=== PATIENT | female | born 1995 | race Caucasian/White ===

== ENCOUNTER 2018-10-21 09:44 | Emergency (ER) | payer BC, OTHER ==
[~2018-10-21] VITALS: Ht 157.5 cm; Wt 49.8 kg
[~2018-10-21 09:44] MED LIST: FLUO10CA26; QUET25TA; RANI75TA
[2018-10-21 09:55] VITALS: BP 143/92; PULSE 77; RESP 18; Ht 157.5 cm; Wt 49.8 kg
[2018-10-21] MEDS ORDERED: ONDANSETRON (ODT) 4 MG TAB ODT STA (10:07)
[2018-10-21] MEDS ORDERED: KETOROLAC 30 MG INJ IV STA (10:31)
[2018-10-21] MEDS ORDERED: ONDANSETRON 4 MG INJ IV STA (10:31)
[2018-10-21] MEDS ORDERED: SOD CHLORIDE 0.9% 1,000 ML IV STA (10:31)
[2018-10-21] MEDS ORDERED: ACET500C5 PO (12:06)
[2018-10-21] MEDS ORDERED: ONDA4TAB14 PO (12:30)
--- NOTE | 2018-10-21 13:48 | ERD ---
ER Documentation Chief Complaint Chief Complaint PT with with R sided AP , diarrhea, vomiting since this morning, dysuria HPI 22 yr old female complaining of abdominal pain with vomiting and diarrhea. Patient has some dysuria. Denies any fevers. Has not taken medications for symptoms. Patient has a history of dysuria. Denies medical problems. NKDA. Surgical history denies. Social history denies ROS All systems reviewed and are negative except as per history of present illness. Medications Home Meds Active Scripts Ondansetron (Ondansetron Odt) 4 Mg Tab.rapdis, 4 MG PO Q6H PRN for NAUSEA AND/OR VOMITING, #10 TAB Prov:KYRA YODER PA-C 10/21/18 Acetaminophen* (Tylophen*) 500 Mg Capsule, 2 CAP PO Q8H PRN for PAIN AND OR ELEVATED TEMP, #20 CAP Prov:KYRA YODER PA-C 10/21/18 Reported Medications Ranitidine Hcl ([facility] 75) 75 Mg Tablet 09/21/09 Quetiapine Fumarate* (Seroquel*) 25 Mg Tablet 09/21/09 Fluoxetine Hcl* (Prozac*) 10 Mg Capsule 09/21/09 Allergies Allergies: Coded Allergies: No Known Allergy (Verified Allergy, Mild, 09/21/09) PMhx/Soc History of Surgery: No Hx Neurological Disorder: No Hx Respiratory Disorders: No Hx Cardiac Disorders: No Hx Psychiatric Problems: No Hx Miscellaneous Medical Probl: No Hx Alcohol Use: No Hx Substance Use: No Hx Tobacco Use: No Smoking Status: Never smoker FmHx Family History: No diabetes, No coronary disease, No other Physical Exam Vitals Vital Signs Date Temp Pulse Resp B/P (MAP) Pulse Ox O2 O2 Flow FiO2 Time Delivery Rate 10/21/18 98.4 77 18 143/92 99 09:55 (109) Physical Exam GENERAL: The patient is well-appearing, well-nourished, in no acute distress HEENT: Atraumatic. Conjunctivae are pink. Pupils equal, round, and reactive to light. There is no scleral icterus. Tympanic membranes clear bilaterally. Oropharynx clear. NECK: C-spine is soft and supple. There is no meningismus. There is no cervical lymphadenopathy. CHEST: Clear to auscultation bilaterally. There are no rales, wheezes or rhonchi. HEART: Regular rate and rhythm. No murmurs, clicks, rubs or gallops. ABDOMEN:Soft, nontender and nondistended. Good bowel sounds. No rebound or guarding. No gross peritonitis. No gross organomegaly or masses. BACK: No midline or flank tenderness. Result Diagram: 10/21/18 1102 10/21/18 1102 Results 24 hrs Laboratory Tests Test 10/21/18 10:15 10/21/18 10:17 10/21/18 11:02 Bedside Urine pH (LAB) 6.0 Bedside Urine Protein (LAB) 1+ Bedside Urine Glucose (UA) Negative Bedside Urine Ketones (LAB) Negative Bedside Urine Blood 3+ Bedside Urine Nitrite (LAB) Negative Bedside Urine Leukocyte Esterase (L Negative POC Beta HCG, Qualitative NEGATIVE White Blood Count 14.5 10^3/ul Red Blood Count 4.40 10^6/ul Hemoglobin 12.9 g/dl Hematocrit 39.3 % Mean Corpuscular Volume 89.3 fl Mean Corpuscular Hemoglobin 29.3 pg Mean Corpuscular Hemoglobin Concent 32.8 g/dl Red Cell Distribution Width 13.2 % Platelet Count 211 10^3/UL Mean Platelet Volume 12.2 fl Immature Granulocytes % 0.300 % Neutrophils % 85.9 % Lymphocytes % 9.3 % Monocytes % 3.8 % Eosinophils % 0.5 % Basophils % 0.2 % Nucleated Red Blood Cells % 0.0 /100WBC Immature Granulocytes # 0.050 10^3/ul Neutrophils # 12.5 10^3/ul Lymphocytes # 1.4 10^3/ul Monocytes # 0.6 10^3/ul Eosinophils # 0.1 10^3/ul Basophils # 0.0 10^3/ul Nucleated Red Blood Cells # 0.0 10^3/ul Sodium Level 141 mmol/L Potassium Level 4.5 mmol/L Chloride Level 109 mmol/L Carbon Dioxide Level 24 mmol/L Anion Gap 8 Blood Urea Nitrogen 8 mg/dl Creatinine 0.65 mg/dl Est Glomerular Filtrat Rate mL/min > 60 mL/min Glucose Level 104 mg/dl Calcium Level 9.3 mg/dl Total Bilirubin 1.0 mg/dl Direct Bilirubin 0.00 mg/dl Indirect Bilirubin 1.0 mg/dl Aspartate Amino Transf (AST/SGOT) 19 IU/L Alanine Aminotransferase (ALT/SGPT) 18 IU/L Alkaline Phosphatase 84 IU/L Total Protein 8.2 g/dl Albumin 4.5 g/dl Globulin 3.70 g/dl Albumin/Globulin Ratio 1.21 Lipase 71 U/L Current Medications Medications Dose Sig/Jeff Start Time Status Last (Trade) Ordered Route PRN Stop Time Admin Dose Reason Admin Ondansetron 4 mg ONCE STAT 10/21/18 DC 10/21/18 HCl (Zofran ODT 10:07 10/21/18 10:13 Odt) 10:08 Sodium 1,000 ml @ Q1H STAT 10/21/18 DC 10/21/18 Chloride 1,000 mls/hr IV 10:31 10/21/18 11:02 11:30 Ondansetron 4 mg ONCE STAT 10/21/18 DC 10/21/18 HCl (Zofran IV 10:31 10/21/18 11:01 Inj) 10:32 Ketorolac 30 mg ONCE STAT 10/21/18 DC 10/21/18 Tromethamine IV 10:31 10/21/18 11:01 (Toradol) 10:33 Procedures/MDM DIAGNOSTIC IMAGING REPORT Patient: JOSE MONROE : 1995 Age: 22 Sex: F MR #: [id number] DOS: 10/21/18 1031 Ordering MD: PARRISH YODER PA-C Location: E Room/Bed: PROCEDURE: CT abdomen and pelvis without contrast. CLINICAL INDICATION: Abdominal pain. TECHNIQUE: CT scan of the abdomen and pelvis without contrast was performed on a multi-slice CT scanner . Sagittal and coronal reformatted images were obtained from the axial source images. One or more of the following dose reduction techniques were used: - Automated exposure control. - Adjustment of the mA and/or kV according to patient size. - Use of iterative reconstruction technique. DICOM images are available DLP 215.1 mGycm. CTDIvol 4.58 mGy COMPARISON: None FINDINGS: Fine detail of the soft tissues is limited secondary to the lack of IV contrast. Evaluation for enhancing lesions cannot be performed. Lower thorax:The lung bases are clear. Liver: There is uniform density of the liver with no gross focal lesion. Biliary: The gallbladder is unremarkable without surrounding inflammation. No biliary dilatation. Pancreas: Homogeneous density of the pancreas without visible focal lesion or cystic abnormality. There is no pancreatic ductal dilatation. Spleen: Unremarkable without enlargement or focal lesion. Adrenal Glands: The adrenal glands are within normal limits without mass. Urinary: The kidneys are symmetric in size bilaterally. There are no visible renal or ureteral stones. There is no hydronephrosis. Gastrointestinal: No evidence of bowel obstruction or inflammation. The appendix is not visualized. Lymph nodes: There are no enlarged lymph nodes. Vascular: The aorta is unremarkable. Peritoneum/mesentery: There is no free air. Reproductive organs: The uterus and adnexal structures are grossly within normal limits. Follicular changes seen within the ovaries bilaterally. Trace fluid is seen within the cul-de-sac of indeterminate significance. Musculoskeletal: There is no acute osseous abnormality. Other: None IMPRESSION: No evidence of bowel obstruction or inflammation. The appendix is not visu alized. No renal or ureteral calculi with no evidence of hydronephrosis. MDM: 22-year-old female presenting with abdominal pain. Patient's exam is within normal limits CT scan is within normal limits. Blood work is not concerning and urine is negative. Patient was discharged with supportive medications. I have low suspicion for dehydration. I have low suspicion for acute abdominal emergency. I have low suspicion for sepsis or infectious process. Patient is discharged with strict ER precautions and told to follow-up with primary care within 1 to 2 days for close evaluation. Patient is told symptoms change or worsen to return immediately to the ER. All questions answered at discharge Departure Diagnosis: Primary Impression: Abdominal pain Condition: Stable Patient Instructions: Abdominal Pain Referrals: [facility] YOU HAVE RECEIVED A MEDICAL SCREENING EXAM AND THE RESULTS INDICATE THAT YOU DO NOT HAVE A CONDITION THAT REQUIRES URGENT TREATMENT IN THE EMERGENCY DEPARTMENT. FURTHER EVALUATION AND TREATMENT OF YOUR CONDITION CAN WAIT UNTIL YOU ARE SEEN IN YOUR DOCTORS OFFICE WITHIN THE NEXT 1-2 DAYS. IT IS YOUR RESPONSIBILITY TO MAKE AN APPOINTMENT FOR FOLOW-UP CARE. IF YOU HAVE A PRIMARY DOCTOR --you should call your primary doctor and schedule an appointment IF YOU DO NOT HAVE A PRIMARY DOCTOR YOU CAN CALL OUR PHYSICIAN REFERRAL HOTLINE AT IF YOU CAN NOT AFFORD TO SEE A PHYSICIAN YOU CAN CHOSE FROM THE FOLLOWING [facility] [address] [facility]. [facility] [address] [facility]. [facility] [place] [address] [facility]. [facility] [address] [facility] [address] [facility]. [facility]. [address] Additional Instructions: FOLLOW UP WITH YOUR PRIMARY CARE PHYSICIAN TOMORROW.Return to this facility if you are not improving as expected. KYRA YODER PA-C October 21, 2018 13:48
== END 2018-10-21 12:35 | disposition home or self-care (01) ==
LOC: FTE 09:44
DX: R10.9 Unspecified abdominal pain (principal); R11.10 Vomiting, unspecified
CPT/HCPCS: 36415; 74176; 80053; 81003; 81025; 83690; 85025; 96361; 96374; 96375; 96376; J1885; J2405; J7030; Z7502; Z7610